=== PATIENT | male | born 1935 | race Two or more races ===

== ENCOUNTER 2022-07-22 10:00 | Outpatient (CLI) | payer MEDICARE, OTHER | END 2022-07-22 23:59 | disposition home or self-care (01) | LOC: WOU 10:00 | PROVIDERS: ATTEND Podiatrist Foot & Ankle Surgery | DX: L60.0 Ingrowing nail (principal); L60.3 Nail dystrophy; E11.40 Type 2 diabetes mellitus with diabetic neuropathy, unspecified; M79.672 Pain in left foot; R26.2 Difficulty in walking, not elsewhere classified | CPT/HCPCS: G0463 ==

== ENCOUNTER 2022-09-16 09:37 | Outpatient (CLI) | payer MEDICARE, OTHER | END 2022-09-16 23:59 | disposition home or self-care (01) | LOC: WOU 09:37 | PROVIDERS: ATTEND Podiatrist Foot & Ankle Surgery | DX: L60.3 Nail dystrophy (principal); E11.40 Type 2 diabetes mellitus with diabetic neuropathy, unspecified; R26.2 Difficulty in walking, not elsewhere classified; M79.672 Pain in left foot | CPT/HCPCS: G0463 ==